=== PATIENT | female | born 1990 | race African-American/Black ===

== ENCOUNTER 2021-03-24 14:12 | Emergency (ER) | payer BC ==
[~2021-03-24] VITALS: Ht 162.6 cm; Wt 63.0 kg
[2021-03-24 16:02] LABS: BASOPHILS % 0.1 % (0.0-2.0); EOSINOPHILS % 0.1 % (0.0-5.0); HEMATOCRIT. 42.5 % (36.0-48.0); LYMPHOCYTES % 8.6 % (20.0-50.0); MEAN CORPUSCULAR HEMOGLOBIN 32.7 pg (28.0-32.0); MEAN CORPUSCULAR VOLUME 99.1 fL (81.0-99.0); MEAN PLATELET VOLUME 10.2 fl (7.4-10.4); MONOCYTES % 5.8 % (2.0-8.0); NEUTROPHILS % 85.4 % (40.0-76.0); PLATELET 124 x1000/uL (130-400); RED BLOOD CELL COUNT 4.28 mill/uL (4.2-5.4); RED CELL DISTRIBUTION WIDTH 13.1 % (11.6-14.6)
[2021-03-24 16:07] LABS: CHLORIDE 109 mEq/L (98-107)
[2021-03-24 16:14] LABS: HCG SCREEN NEGATIVE
[2021-03-24] MEDS ORDERED: VISCOUS LIDOCAINE 2% 15 ML UDC PO STA (17:36)
[2021-03-24] MEDS ORDERED: ONDANSETRON HCL 4MG/2ML INJ IV STA (17:36)
[2021-03-24] MEDS ORDERED: SODIUM CHLORIDE 0.9% 1,000 ML IV ONE (17:45)
[2021-03-24] MEDS ORDERED: MORPHINE SULFATE 2 MG/ML CPJ (NOT FOR IM USE) IV ONE (18:15)
[2021-03-24] MEDS ORDERED: KETOROLAC 15MG/ML VIAL IV ONE (19:00)
[2021-03-24] MEDS ORDERED: AMOX-494 MT (20:21)
[2021-03-24] MEDS ORDERED: IBUP-2028 MT (20:22)
[2021-03-24 21:25] VITALS: BP 120/73
[2021-03-24] MEDS ORDERED: IOHEXOL-350 100 ML BOTTLE ONE (23:27)
== END 2021-03-24 21:25 | disposition home or self-care (01) ==
LOC: ER 14:22
DX: R07.89 Other chest pain (principal); J18.9 Pneumonia, unspecified organism; D64.9 Anemia, unspecified
CPT/HCPCS: 36415; 71045; 71275; 80053; 83690; 83880; 84484; 84703; 85025; 85379; 93005; 96374; 96375; 99285; J1885; J2270; J2405; J7030; Q9967

== ENCOUNTER 2021-03-26 09:22 | Inpatient (IN) | payer BC ==
[~2021-03-26] VITALS: Ht 162.6 cm; Wt 49.9 kg
[~2021-03-26 09:22] MED LIST: AMOX-494 MT; IBUP-2028 MT
[2021-03-26 10:14] LABS: CLARITY URINE CLEAR (CLEAR); COLOR URINE YELLOW (YELLOW); KETONES URINE 4+ (NEGATIVE); LEUKOCYTE ESTERASE URINE TRACE (NEGATIVE); NITRITE URINE NEGATIVE (NEGATIVE); OCCULT BLOOD URINE 1+ (NEGATIVE); PROTEIN URINE 2+ (NEGATIVE)
[2021-03-26] MEDS ORDERED: ONDANSETRON HCL 4MG/2ML INJ IV STA ×2 (10:21→12:08)
[2021-03-26] MEDS ORDERED: SODIUM CHLORIDE 0.9% 1,000 ML IV ONE ×2 (10:30→12:15)
[2021-03-26 10:56] LABS: CHLORIDE 105 mEq/L (98-107)
[2021-03-26 11:24] LABS: BASOPHILS % 0.1 % (0.0-2.0); EOSINOPHILS % 0.3 % (0.0-5.0); HEMATOCRIT. 38.7 % (36.0-48.0); HEMOGLOBIN. 13.5 g/dL (12.0-16.0); LYMPHOCYTES % 13.9 % (20.0-50.0); MEAN CORPUSCULAR HEMOGLOBIN 32.9 pg (28.0-32.0); MEAN CORPUSCULAR VOLUME 94.4 fL (81.0-99.0); MEAN PLATELET VOLUME 10.1 fl (7.4-10.4); MONOCYTES % 9.2 % (2.0-8.0); NEUTROPHILS % 76.5 % (40.0-76.0); PLATELET 122 x1000/uL (130-400); RED BLOOD CELL COUNT 4.09 mill/uL (4.2-5.4); RED CELL DISTRIBUTION WIDTH 12.9 % (11.6-14.6)
[2021-03-26 11:33] LABS: INR 1.1; PROTHROMBIN TIME 11.9 sec (9.6-11.0)
[2021-03-26] MEDS ORDERED: DIPHENHYDRAMINE 50MG/ML VIAL IV PRN (13:30)
[2021-03-26] MEDS ORDERED: DOCUSATE SODIUM 100MG CAPSULE PO PRN (13:30)
[2021-03-26] MEDS ORDERED: ACETAMINOPHEN 325MG TABLET PO PRN ×2 (13:30)
[2021-03-26] MEDS ORDERED: CLONIDINE 0.1MG TABLET PO PRN (13:30)
[2021-03-26] MEDS ORDERED: IPRATROPIUM/ALBUTEROL 0.5-3(2.5)MG/3ML NEB HHN PRN (13:30)
[2021-03-26] MEDS ORDERED: GUAIFENESIN 200MG/10ML SUGAR FREE UDC PO PRN (13:30)
[2021-03-26] MEDS ORDERED: MAGNESIUM/ALUMINUM HYDROXIDE/SIMETHICONE 30ML UDC PO PRN (13:30)
[2021-03-26] MEDS ORDERED: HYDROCODONE/ACETAMINOPHEN 5/325MG TABLET PO PRN (13:30)
[2021-03-26] MEDS ORDERED: CEFTRIAXONE 2 G PREMIX 50 ML IV ONE (14:30)
[2021-03-26] MEDS ORDERED: METOCLOPRAMIDE HCL 10MG/2ML VIAL IV NR (14:45)
[2021-03-26] MEDS ORDERED: AZITHROMYCIN 250 MG in DEXT 5% WATER 250 ML IV SCH (15:00)
[2021-03-26] MEDS ORDERED: CEFTRIAXONE 2 G in DEXTROSE 5% WATER 50 ML IV NR (15:00)
[2021-03-26] MEDS: ACETAMINOPHEN 500MG TABLET PO NR ×2 (15:17→16:37)
[2021-03-26 15:47] LABS: HCG SCREEN NEGATIVE
[2021-03-26 15:52] LABS: CREATINE KINASE 792 IU/L (26-192)
[2021-03-26] MEDS: DEXT 5%/0.45% NACL 1000ML 1,000 ML IV SCH ×2 (17:15→23:06)
[2021-03-26] MEDS ORDERED: IOHEXOL-300 100 ML BOTTLE ONE (19:29)
[2021-03-26 22:40] VITALS: BP_SYST 128; BP_SYST 135; BP_DIAS 76; BP_DIAS 82
[2021-03-26] MEDS: METOCLOPRAMIDE HCL 10MG/2ML VIAL IV SCH (23:05)
[2021-03-27 04:00] VITALS: BP 151/97
[2021-03-27] MEDS: ONDANSETRON HCL 4MG/2ML INJ IV PRN ×2 (04:30→22:38)
[2021-03-27] MEDS: METOCLOPRAMIDE HCL 10MG/2ML VIAL IV SCH ×3 (05:33→17:05)
[2021-03-27] MEDS ORDERED: NALOXONE HCL 0.4MG/ML VIAL IV PRN (07:45)
[2021-03-27 08:00] VITALS: BP 141/86
[2021-03-27 08:12] LABS: BASOPHILS % 0.2 % (0.0-2.0); HEMATOCRIT. 39.8 % (36.0-48.0); HEMOGLOBIN. 13.6 g/dL (12.0-16.0); LYMPHOCYTES % 15.7 % (20.0-50.0); MEAN CORPUSCULAR HEMOGLOBIN 32.5 pg (28.0-32.0); MEAN CORPUSCULAR VOLUME 95.2 fL (81.0-99.0); MEAN PLATELET VOLUME 10.5 fl (7.4-10.4); MONOCYTES % 8.7 % (2.0-8.0); NEUTROPHILS % 75.4 % (40.0-76.0); PLATELET 118 x1000/uL (130-400); RED BLOOD CELL COUNT 4.18 mill/uL (4.2-5.4); RED CELL DISTRIBUTION WIDTH 13.1 % (11.6-14.6)
[2021-03-27 08:39] LABS: CHLORIDE 106 mEq/L (98-107)
[2021-03-27] MEDS ORDERED: HALOPERIDOL LACTATE 5MG/ML VIAL IM NR (08:45)
[2021-03-27 08:46] LABS: LDL CHOLESTEROL 94 mg/dL (5-100); T4 FREE 1.36 ng/dL (0.76-1.46)
[2021-03-27 08:47] LABS: HDL CHOLESTEROL 53 mg/dL (40-59)
[2021-03-27 09:00] LABS: TOTAL IRON BINDING CAPACITY 240 ug/dL (250-450)
[2021-03-27] MEDS ORDERED: MORPHINE SULFATE 2 MG/ML CPJ (NOT FOR IM USE) IV NR (09:15)
[2021-03-27 09:20] LABS: FOLIC ACID (FOLATE) SERUM >20 ng/mL ng/mL (>5.38)
[2021-03-27 09:29] LABS: VITAMIN B12 SERUM 1670 pg/mL (211-911)
[2021-03-27] MEDS: DEXT 5%/0.45% NACL 1000ML 1,000 ML IV SCH ×2 (10:09→19:30)
[2021-03-27 10:53] LABS: FERRITIN 114 ng/mL (10-291)
[2021-03-27] MEDS ORDERED: KCL 20MEQ/100ML PREMIX 100 ML IV NR (11:00)
[2021-03-27 12:00] VITALS: BP 142/90
[2021-03-27] MEDS: CEFTRIAXONE 1,000 MG in DEXTROSE 5% WATER 50 ML IV SCH (12:57)
[2021-03-27] MEDS: AZITHROMYCIN 250 MG in DEXT 5% WATER 250 ML IV SCH (12:58)
[2021-03-27] MEDS: PANTOPRAZOLE SODIUM 40 MG/VIAL IV SCH (13:07)
[2021-03-27] MEDS ORDERED: CEFTRIAXONE 1,000 MG in DEXTROSE 5% WATER 50 ML IV SCH (15:00)
[2021-03-27] MEDS ORDERED: CEFTRIAXONE 1 G PREMIX 50 ML IV SCH (19:15)
[2021-03-27 20:00] VITALS: BP 129/78
[2021-03-28] VITALS: BP 142/87
[2021-03-28] MEDS: METOCLOPRAMIDE HCL 10MG/2ML VIAL IV SCH ×4 (00:37→17:51)
[2021-03-28 04:00] VITALS: BP 124/88
[2021-03-28] MEDS: DEXT 5%/0.45% NACL 1000ML 1,000 ML IV SCH ×2 (05:29→17:52)
[2021-03-28] MEDS: PANTOPRAZOLE SODIUM 40 MG/VIAL IV SCH (09:25)
[2021-03-28] MEDS: AZITHROMYCIN 250 MG in DEXT 5% WATER 250 ML IV SCH (11:07)
[2021-03-28] MEDS: CEFTRIAXONE 1,000 MG in DEXTROSE 5% WATER 50 ML IV SCH (11:09)
[2021-03-28 20:00] VITALS: BP 143/99
[2021-03-29] VITALS: BP_SYST 121; BP_SYST 133; BP_DIAS 78; BP_DIAS 90
[2021-03-29] MEDS: METOCLOPRAMIDE HCL 10MG/2ML VIAL IV SCH ×3 (00:23→12:16)
[2021-03-29] MEDS: DEXT 5%/0.45% NACL 1000ML 1,000 ML IV SCH (00:33)
[2021-03-29 04:00] VITALS: BP 141/79
[2021-03-29] MEDS: PANTOPRAZOLE SODIUM 40 MG/VIAL IV SCH (09:27)
[2021-03-29] MEDS: ONDANSETRON HCL 4MG/2ML INJ IV PRN (10:41)
[2021-03-29] MEDS: CEFTRIAXONE 1,000 MG in DEXTROSE 5% WATER 50 ML IV SCH (10:41)
[2021-03-29] MEDS: AZITHROMYCIN 250 MG in DEXT 5% WATER 250 ML IV SCH (12:16)
[2021-03-29 15:53] VITALS: BP 126/74
== END 2021-03-29 16:40 | disposition home or self-care (01) | DRG 391 ==
LOC: ER 09:33 → 6EST 12:35 → ENRESERV 19:25 → 6EST 22:38
PROVIDERS: ADMIT Family Medicine Adult Medicine; ATTEND Family Medicine Adult Medicine
DX: K52.9 Noninfective gastroenteritis and colitis, unspecified (principal); J18.9 Pneumonia, unspecified organism; E87.2 Acidosis; D50.9 Iron deficiency anemia, unspecified; D63.8 Anemia in other chronic diseases classified elsewhere; E86.0 Dehydration; F17.210 Nicotine dependence, cigarettes, uncomplicated; K57.90 Diverticulosis of intestine, part unspecified, without perforation or abscess without bleeding; K76.0 Fatty (change of) liver, not elsewhere classified; F12.90 Cannabis use, unspecified, uncomplicated; Z20.822 Contact with and (suspected) exposure to COVID-19; R11.2 Nausea with vomiting, unspecified; Z79.899 Other long term (current) drug therapy; Z79.51 Long term (current) use of inhaled steroids
CPT/HCPCS: 36415; 74177; 76700; 80053; 80061; 81003; 82550; 82607; 82728; 82746; 83540; 83550; 83605; 84145; 84439; 84443; 84484; 84703; 85025; 87426; 93005; 99285; C9113; J0456; J0696; J2270; J2405; J2765; J3480; J7030; J7060; Q9967